=== PATIENT | male | born 1995 | race Caucasian/White ===

== ENCOUNTER → 2022-02-13 | Outpatient (CLI) | payer OTHER ==
--- NOTE | 2022-02-13 10:36 | KCIC ---
MR LUMBAR SPINE WO [id number] History: Reason: RADICULOPATHY LUMBAR REGION / Spl. Instructions: / History: Technique: Multiplanar, multi sequential MR imaging was performed of the lumbar spine. Comparison: None Findings: Normal vertebral body height and alignment. No fracture. Conus terminates at the normal location. No evidence of nerve root clumping. L1-L2: No canal or neuroforaminal narrowing. L2-L3: No canal or neuroforaminal narrowing. L3-L4: Moderate central disc protrusion. Moderate canal narrowing. Severe subarticular recess narrow ing on the left. Abutment of the bilateral descending nerve roots, left greater than right. Mild face t arthropathy. No neuroforaminal narrowing. L4-L5: Left paracentral/subarticular disc extrusion extending slightly inferiorly. Mild canal narrow ing. Left subarticular recess narrowing. Abutment and displacement of the descending left L5 nerve ro ot. Mild facet arthropathy. Mild neuroforaminal narrowing. L5-S1: Central/right subarticular disc extrusion extending superiorly. Mild canal narrowing. Abutmen t and displacement of the descending right S1 nerve root. Slight abutment of the descending left S1 n erve root. No neuroforaminal narrowing. Impression: 1. L3-L4 disc protrusion contributing to moderate canal narrowing with severe subarticular recess na rrowing abutment of descending nerve roots. 2. L4-L5 left paracentral/subarticular disc extrusion abutting and displacing the left descending L5 nerve root. Correlate for arthropathy. 3. L5-S1 right paracentral/subarticular disc extrusion abutting and displacing the descending right S1 nerve root. Correlate for arthropathy. Electronically signed by: Jose Augustin DO (02/13/2022 10:33 AM) [id number]
== END ==
LOC: KCIC MRI 08:03
PROVIDERS: ATTEND Family Medicine Sports Medicine
DX: M51.27 Other intervertebral disc displacement, lumbosacral region (principal); M48.8X6 Other specified spondylopathies, lumbar region; M48.07 Spinal stenosis, lumbosacral region
CPT/HCPCS: 72148